=== PATIENT | male | born 1945 | race Caucasian/White ===

== ENCOUNTER 2018-05-12 11:06 | Emergency (ER) | payer MEDICARE ==
[~2018-05-12] VITALS: Ht 167.6 cm; Wt 96.4 kg
[2018-05-12 11:11] VITALS: Ht 167.6 cm; Wt 96.4 kg
[2018-05-12] MEDS ORDERED: HYDROCODONE-APA1 TAB PO (11:18)
[2018-05-12] MEDS ORDERED: ZOFRAN4 MG PO (11:19)
[2018-05-12] MEDS ORDERED: FLOMAX0.4 MG PO (11:19)
[2018-05-12] MEDS ORDERED: LIPITOR20 MG PO (11:20)
[2018-05-12] MEDS ORDERED: AVAPRO150 MG PO (11:20)
[2018-05-12] MEDS ORDERED: COREG 3.1253.125 MG PO (11:21)
[2018-05-12 12:00] LABS: BASOPHILS 0.1 % (0-2); EOSINOPHILS 0.4 % (0-7); HEMATOCRIT 37.5 % (42.0-54.0); IMMATURE GRANULOCYTES 0.3 % (0-5); MCH 29.5 pg (26.0-34.0); MCHC 34.7 g/dL (31.0-37.0); MEAN PLATELET VOLUME 10.8 fL (7.4-10.4); MONOCYTES 10.3 % (2-11); NEUTROPHILS 76.9 % (40-80); PLATELET COUNT 114 10x3/uL (130-400); RBC 4.41 10x6/uL (4.20-6.10); RDW 13.7 % (11.5-14.5)
[2018-05-12 12:17] LABS: ANION GAP 7.9 mmol/L (8-16); BILIRUBIN - TOTAL 0.56 mg/dL (0.2-1.3); CALCIUM 8.1 mg/dL (8.5-10.1); CARBON DIOXIDE 31.3 mmol/L (21.0-32.0); CREATININE - SERUM 1.6 mg/dL (0.6-1.3); POTASSIUM - SERUM 3.2 mmol/L (3.5-5.1); PROTEIN - SERUM 6.1 g/dL (6.4-8.2)
[2018-05-12 12:38] LABS: APPEARANCE HAZY (CLEAR); COLOR YELLOW (YELLOW); SPECIFIC GRAVITY 1.015 (1.005-1.020)
[2018-05-12 12:39] LABS: BACTERIA FEW /hpf (NONE SEEN); BILIRUBIN NEGATIVE (NEGATIVE); EPITHELIAL CELLS OCC /hpf (0-5); GLUCOSE 100 mg/dL (NEGATIVE); GRANULAR CAST RARE /lpf (NONE SEEN); KETONE MODERATE mg/dL (NEGATIVE); MUCUS >1+ /lpf (NONE SEEN); NITRITE NEGATIVE (NEGATIVE); PROTEIN NEGATIVE (NEGATIVE); RED CELLS - URINE 25-50 /hpf (0-5); UROBILINOGEN NORMAL (NORMAL); WHITE CELLS - URINE 0-5 /hpf (0-5)
[2018-05-12 15:08] LABS: AMYLASE - SERUM 32 U/L (25-115); LIPASE 86 U/L (73-393)
[2018-05-12 18:11] VITALS: BP 133/82
== END 2018-05-12 18:11 | disposition home or self-care (01) ==
LOC: D.ER 11:06
PROVIDERS: Family Medicine
DX: N20.0 Calculus of kidney (principal); R10.32 Left lower quadrant pain; R10.31 Right lower quadrant pain; Z95.1 Presence of aortocoronary bypass graft